=== PATIENT | male | born 1970 | race Caucasian/White ===

== ENCOUNTER 2016-06-30 17:41 | Emergency (ER) | payer SELFPAY ==
[~2016-06-30] VITALS: Ht 177.8 cm; Wt 73.0 kg
[2016-06-30 17:42] VITALS: BP 129/88; PULSE 72; RESP 16; TEMP 98.1; O2SAT 99
--- NOTE | 2016-06-30 18:37 | PD ---
HPI Chief Complaint: Injury Time Seen by Provider: 18:37 Travel History International Travel<30 days: No Contact w/Intl Traveler<30days: No Traveled to known affect area: No History of Present Illness HPI 46-year-old male presents emergency Department with complaint of redness and swelling to the back of his left hand that started today. He had stitches removed from his hand on 21 June and woke up with the swelling and redness today. He denies paresthesias, loss of sensation, decreased range of motion, decreased strength to the affected extremity. Denies fever, chills, nausea, vomiting. Does not know if he is up-to-date on his tetanus vaccination. No known allergies. No other modifying factors or associated signs and symptoms. PFSH Past Medical History Tetanus Vaccination: Unknown Social History Tobacco Use: No Allergies-Medications (Allergen,Severity, Reaction): Coded Allergies: No Known Allergies (Unverified , 06/30/16) Reported Meds & Prescriptions Reported Meds & Active Scripts Active Ibuprofen 800 Mg Tab 800 Mg PO Q6HR PRN Bactrim DS (Sulfamethoxazole-Trimethoprim) 800-160 Mg Tab 1 Tab PO BID 10 Days Keflex (Cephalexin) 500 Mg Cap 500 Mg PO Q6H 10 Days Review of Systems Except as stated in HPI: all other systems reviewed are Neg Physical Exam Narrative GENERAL: Well-nourished, well-developed male patient, in no acute distress; afebrile, nontoxic-appearing SKIN: Warm and dry. Dorsal aspect of left hand involving the third, fourth, fifth digits and metatarsal areas with erythema, warmth to touch, edema and with tenderness to palpation. Approximately 1 cm healed scar that is well approximated and without drainage. Left upper extremity supple and non-tense with 2+ radial pulse and sensory intact; full range of motion at the wrist and finger joints. HEAD: Atraumatic. Normocephalic. EYES: Pupils equal and round. No scleral icterus. No injection or drainage. ENT: Mucosa pink and moist. Airway patent. NECK: Trachea midline. CARDIOVASCULAR: Regular rate. RESPIRATORY: No accessory muscle use. GASTROINTESTINAL: Flat. MUSCULOSKELETAL: No obvious deformities. No clubbing. No cyanosis. No edema. NEUROLOGICAL: Awake and alert. Oriented 3. No obvious cranial nerve deficits. Motor grossly within normal limits. Normal speech. PSYCHIATRIC: Appropriate mood and affect; insight and judgment normal. Data Data Last Documented VS Vital Signs Date Time Temp Pulse Resp B/P Pulse Ox O2 Delivery O2 Flow Rate FiO2 06/30/16 17:42 98.1 72 16 129/88 99 Orders Tetanus/Diphtheria Tox Adult (Tetanus/Di (06/30/16 18:45) MDM Medical Decision Making Medical Screen Exam Complete: Yes Emergency Medical Condition: Yes Medical Record Reviewed: Yes Differential Diagnosis Cellulitis, wound infection, contusion Narrative Course 46-year-old male with physical exam consistent with cellulitis to the dorsal aspect of the left hand. He had stitches removed on June 21 from a laceration. He doesn't know if he was updated on his tetanus vaccination. Tetanus updated in the ER. Patient is afebrile and nontoxic-appearing. No signs of septic joints. Left upper extremity supple and nontender 2+ radial pulse and sensory intact with full range of motion at the wrist and all finger joints. Patient is going to work release from discharge here so I will administer antibiotics prior to discharge. Clindamycin administered in the ER. Keflex, Bactrim, ibuprofen prescribed for home. Patient is medically cleared and stable for discharge. Discussed reasons to return to the emergency department. Instructed patient to follow up with primary care provider. Patient agrees with treatment plan. The patients vital signs are stable and the patient is stable for outpatient follow-up and treatment. Patient discharged home, stable and in no acute distress. Diagnosis Primary Impression: Cellulitis of hand, left Referrals: Primary Care Physician Patient Instructions: Cellulitis (ED), General Instructions Additional Instructions: Complete full course of antibiotics Warm compresses to the affected area Keep area clean and dry Ibuprofen or Tylenol as directed and as needed for pain and inflammation Follow-up with primary care provider Return to emergency department immediately with worsening of symptoms Med/Other Pt SpecificInfo: Prescription(s) given Scripts Ibuprofen 800 Mg [id number] Mg PO Q6HR PRN (PAIN) #30 TAB Ref 0 Prov:Yusra Chavez SAW OPERATOR 06/30/16 Sulfamethoxazole-Trimethoprim (Bactrim DS)800-160 Mg Tab1 Tab PO BID 10 Days Ref 0 Prov:Yusra Chavez SAW OPERATOR 06/30/16 Cephalexin (Keflex)500 Mg [id number] Mg PO Q6H 10 Days Ref 0 Prov:Yusra Chavez SAW OPERATOR 06/30/16 Disposition: 01 DISCHARGE HOME Condition: Stable Yusra Chavez Jun 30, 2016 18:37
[2016-06-30] MEDS ORDERED: CEPH-460 PO (18:43)
[2016-06-30] MEDS ORDERED: IBUP800T23 PO (18:43)
[2016-06-30] MEDS ORDERED: BACT800T5 PO (18:43)
[2016-06-30] MEDS ORDERED: TETANUS/DIPHTHERIA TOXOID ADULT 0.5 ML VIAL IM ONE (18:45)
[2016-06-30] MEDS ORDERED: CLINDAMYCIN 150 MG CAP PO SCH (18:45)
== END 2016-06-30 18:51 | disposition home or self-care (01) ==
LOC: NEPB 17:41
DX: L03.114 Cellulitis of left upper limb (principal); Z23 Encounter for immunization
CPT/HCPCS: 90471; 90714

== ENCOUNTER 2016-07-27 11:58 | Emergency (ER) | payer SELFPAY ==
[~2016-07-27] VITALS: Ht 177.8 cm; Wt 75.0 kg
[~2016-07-27 11:58] MED LIST: BACT800T5 PO; CEPH-460 PO; IBUP800T23 PO
[2016-07-27 12:01] VITALS: BP 132/80; PULSE 108; RESP 20; TEMP 98; O2SAT 95
--- NOTE | 2016-07-27 12:31 | PD ---
Physical Exam Date Seen by Provider: Jul 27, 2016 Time Seen by Provider: 12:28 Narrative Pt is a 46 year old male presenting to the ED for evaluation a lip laceration. Pt was bending over to pick something up and hit his lip. Pt denies any pain. He further denies any head injury or LOC. Pt's tetanus vaccine was updated 1 month ago. VSS, pt awaiting bed placement. Data Data Last Documented VS Vital Signs Date Time Temp Pulse Resp B/P Pulse Ox O2 Delivery O2 Flow Rate FiO2 07/27/16 12:01 98.0 108 20 132/80 95 Room Air MDM Supervised Visit with BELLO: Julia Mejia Jul 27, 2016 12:31
--- NOTE | 2016-07-27 14:18 | PD ---
HPI Chief Complaint: Laceration/Skin Injury Time Seen by Provider: 14:18 Travel History International Travel<30 days: No Contact w/Intl Traveler<30days: No Traveled to known affect area: No History of Present Illness HPI 46-year-old male presents to the emergency department for evaluation of a laceration to his lower lip that occurred at 7 AM this morning. He states he bent over and hit his lip against a dresser causing a laceration. He states his tetanus immunization is up-to-date. He denies any other injury. He has no chronic medical problems and takes no prescribed medications. Bleeding is controlled. PFSH Past Medical History Tetanus Vaccination: < 5 Years Social History Alcohol Use: No Tobacco Use: No Substance Use: No Allergies-Medications (Allergen,Severity, Reaction): Coded Allergies: No Known Allergies (Unverified , 06/30/16) Reported Meds & Prescriptions Reported Meds & Active Scripts Active Amoxicillin 875 Mg Tab 875 Mg PO BID 10 Days Ibuprofen 800 Mg Tab 800 Mg PO Q6HR PRN Bactrim DS (Sulfamethoxazole-Trimethoprim) 800-160 Mg Tab 1 Tab PO BID 10 Days Keflex (Cephalexin) 500 Mg Cap 500 Mg PO Q6H 10 Days Review of Systems Except as stated in HPI: all other systems reviewed are Neg Physical Exam Narrative GENERAL: Well-nourished, well-developed male patient, ambulatory. Afebrile. SKIN: Focused skin assessment warm/dry. Patient has a 4 cm flap laceration to the lower lip. This goes along the vermilion border, but does not cross the vermilion border. HEAD: Normocephalic. EYES: No scleral icterus. No injection or drainage. NECK: Supple, trachea midline. No JVD or lymphadenopathy. CARDIOVASCULAR: Regular rate and rhythm without murmurs, gallops, or rubs. RESPIRATORY: Breath sounds equal bilaterally. No accessory muscle use. Lungs sounds are clear to auscultation. GASTROINTESTINAL: Abdomen soft, non-tender, nondistended. MUSCULOSKELETAL: No cyanosis, or edema. BACK: Nontender without obvious deformity. No CVA tenderness. Data Data Last Documented VS Vital Signs Date Time Temp Pulse Resp B/P Pulse Ox O2 Delivery O2 Flow Rate FiO2 07/27/16 12:01 98.0 108 20 132/80 95 Room Air Orders Lidocai-Epi 1%-1:100,000 Inj (Xylocaine- (07/27/16 14:30) MDM Medical Decision Making Medical Screen Exam Complete: Yes Emergency Medical Condition: Yes Medical Record Reviewed: Yes Differential Diagnosis Lip laceration versus contusion versus abrasion Narrative Course 46-year-old male presents to the emergency department for evaluation of a laceration that occurred to his lower lip at 7 AM this morning. Patient gives verbal consent for laceration repair. He is instructed on proper wound care and he will be discharged with a prescription for amoxicillin. He verbalizes agreement and understanding. The patient was discharged in stable condition with instructions, including return instructions and follow up instructions. Procedures Procedure Narrative LACERATION LOCATION: Lower lip LENGTH: 4 cm NUMBER OF STITCHES/RAMON: 7 simple interrupted sutures, one horizontal mattress suture REPAIR: The area of the laceration was prepped with Betadine and sterilely draped. The laceration was infiltrated with 1% lidocaine with epinephrine. The wound was copiously irrigated and explored without evidence of foreign body, tendon injury or neurovascular injury. The wound was closed using 5-0 Vicryl. This was a single layer repair. A sterile dressing was applied. The patient was advised to keep the dressing clean and dry. Patient tolerated the procedure well. Diagnosis Primary Impression: Lip laceration Qualified Code: S01.511A - Lip laceration, initial encounter Referrals: Primary Care Physician call for appointment Patient Instructions: Facial Laceration (ED), General Instructions Additional Instructions: Take antibiotic as directed until gone. This is free of [employer]. Rinse mouth out with warm water after eating. Sutures will dissolve on their own. Follow-up with your primary care physician. Return to the emergency department for any acute worsening of symptoms. Med/Other Pt SpecificInfo: Prescription(s) given Scripts Amoxicillin 875 Mg [id number] Mg PO BID 10 Days Ref 0 Prov:RaghavendraMaira 07/27/16 Disposition: 01 DISCHARGE HOME Condition: Stable Maira Mabry Jul 27, 2016 14:18
[2016-07-27] MEDS ORDERED: LIDOCAINE 1%/EPINEPHrine 1:100,000 SOLN 20 ML VIAL INFIL ONE (14:30)
[2016-07-27] MEDS ORDERED: AMOX875T PO (14:57)
== END 2016-07-27 15:01 | disposition home or self-care (01) ==
LOC: NEPB 11:58
DX: S01.511A Laceration without foreign body of lip, initial encounter (principal); W22.8XXA Striking against or struck by other objects, initial encounter; Y93.89 Activity, other specified; Y92.003 Bedroom of unspecified non-institutional (private) residence as the place of occurrence of the external cause
CPT/HCPCS: 12013